=== PATIENT | male | born 1980 | race African-American/Black ===

== ENCOUNTER 2019-06-04 16:47 | Emergency (ER) | payer BC ==
[~2019-06-04] VITALS: Ht 170.2 cm; Wt 99.8 kg
[2019-06-04 17:51] VITALS: BP 141/83
[2019-06-04] MEDS ORDERED: NAPR-514 PO (18:39)
--- NOTE | 2019-06-04 18:41 | PHYS DOC ---
Past Medical History Past Medical History: No Pertinent History Additional Past Medical Histor: low back pain Past Surgical History: No Surgical History Alcohol Use: Occasionally Drug Use: None Adult General Chief Complaint Chief Complaint: BACK PAIN OR INJURY HPI HPI Patient is a 38 year old male who presents to the emergency department with complaints of right side pain for the last 2 weeks. Patient denies any known injury. He states that the pain increases with movement and palpation. He has had a hard time sleeping on his right side recently. He denies any cough, shortness of breath, increased urinary frequency, blood in his urine, pain with urination, shortness of breath, or fever. He denies any known injury to his right side, he states that he does lift heavy items at work from time to time. Currently, he rates his pain a 7 out of 10 on the pain scale he describes it as sharp and stabbing. He has tried taking Kim aspirin at home for relief of his pain but denies any benefit from the medication. Review of Systems Review of Systems Constitutional: Denies fever or chills [] Eyes: Denies change in visual acuity, redness, or eye pain [] HENT: Denies nasal congestion or sore throat [] Respiratory: Denies cough or shortness of breath [] Cardiovascular: No additional information not addressed in HPI [] GI: Denies abdominal pain, nausea, vomiting, or diarrhea [] : Denies dysuria or hematuria [] Musculoskeletal: See history of present illness Integument: Denies rash or skin lesions [] Neurologic: Denies headache, focal weakness or sensory changes [] Complete systems were reviewed and found to be within normal limits, except as documented in this note. Physical Exam Physical Exam Constitutional: Well developed, well nourished, no acute distress, non-toxic appearance. [] HENT: Normocephalic, atraumatic, bilateral external ears normal, nose normal. [] Eyes: PERRLA, EOMI, conjunctiva normal, no discharge. [] Neck: Normal range of motion, no stridor. [] Cardiovascular:Heart rate regular rhythm, no murmur [] Lungs & Thorax: Bilateral breath sounds clear to auscultation [] Skin: Warm, dry, no erythema, no rash. [] Back: No bony tenderness, R lateral thoracic paraspinal TTP, no CVA tenderness. [] Extremities: No cyanosis, no clubbing, ROM intact, no edema. [] Neurologic: Alert and oriented X 3, no focal deficits noted. [] Psychologic: Affect normal, judgement normal, mood normal. [] Current Patient Data Vital Signs Vital Signs Date Time Temp Pulse Resp B/P (MAP) Pulse Ox O2 Delivery O2 Flow Rate FiO2 06/04/19 17:51 97.9 83 17 141/83 (102) Room Air 97.9 EKG EKG [] Radiology/Procedures Radiology/Procedures [] Course & Med Decision Making Course & Med Decision Making Pertinent Labs and Imaging studies reviewed. (See chart for details) [] Dragon Disclaimer Dragon Disclaimer This electronic medical record was generated, in whole or in part, using a voice recognition dictation system. Departure Departure Impression: Primary Impression: Right-sided back pain Additional Impression: Acute thoracic myofascial strain Disposition: HOME, SELF-CARE Condition: STABLE Referrals: NO PCP (PCP) Patient Instructions: Thoracic Strain, [id number] Additional Instructions: Fill the prescription(s) and use as directed. Apply ice or heat to sore areas as needed for comfort. Activity as tolerated. Follow up with your primary care doctor in 2-3 days, return to the ER if symptoms worsen. Scripts Naproxen (NAPROXEN) 500 Mg Tablet 1 TAB PO BID PRN for PAIN for 10 Days, #20 TAB 0 Refills Prov: ANIL CROWE FINGERPRINT CLERK 06/04/19 Naproxen (NAPROXEN) 500 Mg Tablet 1 TAB PO BID PRN for PAIN for 10 Days, #20 TAB 0 Refills Prov: ANIL CROWE FINGERPRINT CLERK 06/04/19 Problem Qualifiers Primary Impression: Right-sided back pain Back pain location: thoracic back pain Chronicity: acute Qualified Codes: M54.6 - Pain in thoracic spine Additional Impression: Acute thoracic myofascial strain Encounter type: initial encounter Qualified Codes: S29.019A - Strain of muscle and tendon of unspecified wall of thorax, initial encounter ANIL CROWE FINGERPRINT CLERK Jun 04, 2019 18:41
== END 2019-06-04 18:48 | disposition home or self-care (01) ==
LOC: ER 16:47
DX: S29.012A Strain of muscle and tendon of back wall of thorax, initial encounter (principal); X58.XXXA Exposure to other specified factors, initial encounter; Y93.89 Activity, other specified; Y92.89 Other specified places as the place of occurrence of the external cause; Y99.8 Other external cause status
CPT/HCPCS: 99282

== ENCOUNTER → 2020-01-01 | Outpatient (CLI) | payer BC ==
[~2020-01-01] MED LIST: NAPR-514 PO
--- NOTE | 2020-01-01 11:16 | RAD ---
Indications: Fall in September. Right foot and ankle pain. Three-view right ankle study: No acute fracture or dislocation or lytic process is evident. The mortise ankle joint is intact. Three-view right foot study: There is a tiny avulsion fracture of the dorsal proximal aspect of the tarsal navicular bone which appears old since the edges are sclerotic and no adjacent bony defect is seen. No soft tissue swelling is seen in this area as well. No acute-appearing fracture is evident. No dislocation is seen. No periosteal reaction is evident. 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 Small plantar and posterior spurs of the calcaneus are seen. 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 No acute-appearing fracture is evident. Electronically signed by: Maurilio Ford MD (01/01/2020 11:14 AM) [id number]
== END | disposition home or self-care (01) ==
LOC: RAD 09:51
PROVIDERS: ATTEND Family Medicine
DX: M19.071 Primary osteoarthritis, right ankle and foot (principal); M77.31 Calcaneal spur, right foot
CPT/HCPCS: 73610; 73630